=== PATIENT | male | born 1960 | race Caucasian/White ===

== ENCOUNTER 2022-09-11 08:03 | Inpatient (IN) ==
--- NOTE | 2022-09-11 08:55 | Emergency Department Note ---
Impression & Plan Stroke, Right hand weakness, Stroke-like symptom, Pulmonary nodule, Tobacco use disorder ED Provider Note CHIEF COMPLAINT: Right arm weakness, numbness HISTORY OF PRESENT ILLNESS: This 62-year-old male patient presents to the emergency department via private vehicle accompanied by family for evaluation of right arm weakness and numbness. The patient states symptoms started last night after playing cards. He does admit to striking the back of his elbow repeatedly on his chair while playing. He states he also would noticed some numbness sensations when he rested his elbow on the table while playing the game. He states similar symptoms occurred once before several months ago after working on his deck, and they resolved on their own a few days later. The patient did not take any medication for his symptoms. He is unable to actively move the wrist, make a fist, and has having difficulty bending at the elbow. The patient denies any headache, neck pain, chest pain, or shortness of breath. He has not had his symptoms worked up in the past, and does not follow regularly with a PCP or orthopedic doctor. He does admit to having cataract surgery about a month ago and states that he had a preoperative exam at that time, but prior to that, does not recall going to the doctor for many years. He has not had routine blood work completed. He is traveling, staying in a cabin at [facility] on vacation this week and plans to return home tomorrow. REVIEW OF SYSTEMS: A 10 system review of systems was performed with positives and pertinent negatives listed in the history of present illness. All other systems were reviewed and are negative. ALLERGIES: None PHYSICAL EXAM: VITALS: Vitals are noted on the nurse's note and reviewed by myself. Vital signs stable. GENERAL: This is a 62-year-old male, in no acute distress, nondiaphoretic, well- developed well-nourished. SKIN: The skin was without rashes, erythema, edema, or bruising. There is no tenting of the skin. Capillary refill less than 2 seconds. HEAD: Normocephalic atraumatic. EARS: External auditory canals clear, tympanic membranes pearly hugo without erythema or effusion bilaterally. No hemotympanum. Negative christensen sign EYES: Pupils equal round and reactive to light and accommodation. Conjunctivae without injection, sclerae without icterus. Extraocular movements intact. NOSE: Patent, turbinates without inflammation or discharge. No sinus tenderness. MOUTH: Mucous membranes moist. Tonsils are not enlarged. Pharynx without erythema or exudate. Uvula midline. Airway patent. Tongue does not deviate. NECK: Supple without nuchal rigidity. No lymphadenopathy. No thyromegaly. Cervical spine is nontender. No JVD. HEART: Regular rate and rhythm without murmurs gallops or rubs. LUNGS: Clear to auscultation bilaterally without wheezes, rales or rhonchi. No retractions or accessory muscle use. MUSCULOSKELETAL: No muscle atrophy, erythema, or edema noted. Weakness of the right upper extremity from the elbow to the fingers. Decreased esthetician/spa coordinator strength of the right upper extremity. Limited active range of motion in extension of the digits 2 through 5. Slight decreased active range of motion of the right thumb. Full range of motion without joint tenderness in all other extremities including the right shoulder. No tenderness to palpation. Normal gait. Strength 1/5 of the right upper extremity at the forearm as well as esthetician/spa coordinator strength. Strength 5/5 of all other extremities. NEURO: Patient was alert and oriented to person place and time. Normal sensation to light and sharp touch. Deep tendon reflexes 2+ throughout. No focal neurological deficits. An order was placed for continuous playground monitor. The monitor showed a normal sinus rhythm at a ventricular rate of 67 bpm, per my interpretation. EKG, per my interpretation: Sinus rhythm with occasional PVCs. Ventricular rate of [address] elevation or depression. No T wave inversion. No prior EKG available for comparison EMERGENCY DEPARTMENT COURSE: The patient was seen and evaluated as above. Given the history and physical exam, there was concern for possible stroke given the weakness in the right upper extremity. I did discuss case with Dr. Ashby. We did agree to start complete stroke evaluation for this patient. He is out of the window for TNK, as his last known normal was last night. The patient was agreeable. IV access obtained, labs drawn. Labs reviewed by myself as noted. No significant leukocytosis, anemia, thrombocytopenia. Renal, hepatic function and electrolytes without significant abnormality. CT, CT angiogram of the head and neck were completed as noted. There was concern for ill-defined area of decreased attenuation within the superior left frontoparietal lobe suspicious for acute or subacute infarct. CT angiogram concerning for high-grade stenosis of the distal left M1 branch of the middle cerebral artery with additional area of high-grade narrowing noted involving an anterior M2 branch. Given these findings, I did discuss the case with Dr. Melvin, stroke neurologist at [facility]. He agrees that it sounds that the patient likely had a stroke, but does not recommend any acute intervention given he is out of the window with the onset of symptoms last night. He recommends medical management as follows: Loading dose of aspirin 325 mg now. 81 mg aspirin daily afterward Loading dose of Plavix 300 mg now. 75 mg Plavix daily afterwards Rosuvastatin 20 mg daily, adjust based on lipid panel Allow for permissive hypertension to 180 systolic or 110 diastolic. Recommends administering IV fluids to help with the borderline low blood pressure. Dr. Melvin did recommend that the patient follow-up with their stroke clinic in [place] when he returns home. He will need follow-up in 1 month and 2 months. He should call to schedule this appointment and notify them that he was a stroke consult from [facility] to assist with scheduling. I discussed these recommendations with the patient and his family members at bedside. They were agreeable to admission. Patient was medicated with rosuvastatin, Plavix, aspirin for loading doses I discussed the case with the healthcare economics manager. I [facility] did agree to see and evaluate the patient for admission. Please see hospitalist dictation regarding ongoing management care of this patient Differential diagnosis includes nerve palsy, stroke, TIA, infection, dehydration, metabolic abnormality, hypo/hyperglycemia, electrolyte disturbance, anemia, hypoxia, cardiac sources, intracerebral event, toxicologic, neurologic, as well as other pathologies. I attest that I have personally reviewed the patient's current medication list. Patient was found to have normal blood pressure on screening and does not require follow-up. The chart was completed utilizing [employer] Speech voice recognition software. Gra mmatical errors, random word insertions, pronoun errors, and incomplete sentences are an occasional consequence of this system due to software limitations, ambient noise, and hardware issues. Any formal questions or concerns about the content, text, or information contained within the body of this dictation should be directly addressed to the provider for clarification. Past Med/Surg History Medical History No pertinent past medical history Tobacco use disorder Surgical History Cataract H/O: knee surgery Family History Other Diabetes Social History Smoking Status: Current every day smoker Cigarettes Per Day: 30; Second Hand Exposure: Yes; Do You Dip or Chew Tobacco: No; Tobacco Cessation Education Requested by Patient: Yes Hx Alcohol Use: No Hx Substance Use: No Preferred Language: Uzbek Communication Ability: Impaired Motorcycle Service Technician Required: No Beliefs That Will Affect Care: None Current Living Situation: Spouse Other Information That Helps Us Care for You: No Feels Safe at Home: Yes Safety Concerns: Feels Safe At This Time Assistive Devices: None Allergies Allergies Allergy/AdvReac Type Severity Reaction Status Date / Time No Known Allergies Allergy Unverified 09/11/22 10:47 Home Meds Home Medications Medication Instructions Recorded Confirmed No Known Home Medications 09/11/22 09/11/22 Results & Data (ED) Vital Signs Vital Signs - 24 hr 09/11/22 08:09 09/11/22 09:01 09/11/22 08:46 Temperature 36.5 C 36.7 C Temperature Source Temporal Artery Scan Oral Pulse Rate 75 66 Pulse Rate [Apical] 67 Pulse Rhythm [Apical] Regular Pulse Strength [Apical] Normal Respiratory Rate 18 18 Respiratory Effort / Characteristics Non-Labored Spontaneous Non-Labored Respiratory Depth Normal Normal Respiratory Pattern Regular Regular Blood Pressure 128/75 Blood Pressure [Left Arm] 118/69 Blood Pressure Mean 92 Blood Pressure Mean [Left Arm] 85 Pulse Oximetry 95 95 Oxygen Delivery Method Room Air Room Air Sepsis Recent Fever Within 48 Hours No Sepsis New/Unexplained Change in Mental Status No Sepsis Action Taken by Nursing No Action Required 09/11/22 09:01 09/11/22 09:16 09/11/22 09:31 Temperature 36.8 C 36.7 C Temperature Source Oral Oral Pulse Rate Pulse Rate [Apical] 67 68 67 Pulse Rhythm [Apical] Regular Regular Pulse Strength [Apical] Normal Normal Respiratory Rate 15 15 15 Respiratory Effort / Characteristics Non-Labored Non-Labored Non-Labored Respiratory Depth Normal Normal Normal Respiratory Pattern Regular Regular Regular Blood Pressure Blood Pressure [Left Arm] 111/74 119/69 123/81 Blood Pressure Mean Blood Pressure Mean [Left Arm] 86 85 95 Pulse Oximetry 96 96 98 Oxygen Delivery Method Room Air Room Air Room Air Sepsis Recent Fever Within 48 Hours Sepsis New/Unexplained Change in Mental Status Sepsis Action Taken by Nursing 09/11/22 10:00 09/11/22 11:46 Temperature Temperature Source Pulse Rate Pulse Rate [Apical] 67 67 Pulse Rhythm [Apical] Regular Pulse Strength [Apical] Normal Respiratory Rate 15 18 Respiratory Effort / Characteristics Non-Labored Spontaneous Respiratory Depth Normal Respiratory Pattern Regular Blood Pressure Blood Pressure [Left Arm] 123/81 122/68 Blood Pressure Mean Blood Pressure Mean [Left Arm] 95 86 Pulse Oximetry 100 100 Oxygen Delivery Method Room Air Sepsis Recent Fever Within 48 Hours Sepsis New/Unexplained Change in Mental Status Sepsis Action Taken by Nursing Laboratory Data 09/11/22 08:58 09/11/22 08:58 Lab Results 09/11/22 09/11/22 09/11/22 Range/Units 08:55 08:58 08:58 WBC 9.00 (4.8-10.8) K/ul RBC 5.23 (4.70-6.10) M/uL Hgb 15.7 (14.0-18.0) g/dl Hct 45.8 (42.0-52.0) % MCV 87.6 (80.0-100.0) fL MCH 30.0 (25.0-34.0) pg MCHC 34.3 (32.0-36.0) g/dL RDW Std Deviation 46.5 H (36.4-46.3) fL RDW Coeff of Bakari 14.6 H (11.5-14.5) % Plt Count 259 (130-400) K/uL MPV 10.1 (9.4-12.4) fL Immature Gran % (Auto) 0.6 % Neut % (Auto) 68.1 % Lymph % (Auto) 21.2 % [place] % (Auto) 8.4 % Eos % (Auto) 0.8 % Baso % (Auto) 0.9 % Neut # (Auto) 6.13 (1.40-6.50) K/uL Lymph # (Auto) 1.91 (1.2-3.4) K/uL [place] # (Auto) 0.76 H (0.11-0.59) K/uL Eos # (Auto) 0.07 (0-0.50) K/uL Baso # (Auto) 0.08 (0-0.2) K/uL Immature Gran # (Auto) 0.05 (0.01-0.20) K/uL PT (9.0-12.0) Seconds INR (0.9-1.1) APTT (21.0-31.0) Seconds PTT Ratio Sodium (136-145) mmol/L Potassium (3.5-5.1) mmol/L Chloride (98-107) mmol/L Carbon Dioxide (21-32) mmol/L Anion Gap (3-11) BUN (6-23) mg/dl Creatinine (0.6-1.4) mg/dl Est Cr Clr Drug Dosing ml/min Est GFR ( Amer) ml/min Est GFR (Non-Af Amer) ml/min BUN/Creatinine Ratio (10-20) Glucose (70-99(Fasting)) mg/dl POC Glucose 144 H (70-99) mg/dl Calcium (8.6-10.3) mg/dl Magnesium (1.7-2.4) mg/dl Total Bilirubin (0.2-1.0) mg/dl AST (13-39) U/L ALT (7-52) U/L Alkaline Phosphatase (34-104) U/L Troponin I High Sens (0-20) pg/ml C-Reactive Protein (0-0.5) mg/dl Total Protein (6.0-8.3) gm/dl Albumin (3.4-5.0) gm/dl Globulin (2.5-4.0) gm/dl Albumin/Globulin Ratio (0.9-2) Procalcitonin (0-0.5) ng/ml Urine Color Urine Appearance (Clear) Urine pH (4.5-7.5) Ur Specific [place] (1.000-1.030) Urine Protein (Negative) Urine Glucose (UA) (Negative) Urine Ketones (Negative) Urine Blood (Negative) Urine Nitrite (Negative) Urine Bilirubin (Negative) Urine Urobilinogen (Negative) Ur Leukocyte Esterase (Negative) Anaplasma Smear Babesia Smear Lyme Disease IgG Ab (Negative) Lyme Disease IgM Ab (Negative) SARS-CoV-2, RNA, NAAT (NEGATIVE) Blood Type O Positive Antibody Screen NEGATIVE 09/11/22 09/11/22 09/11/22 Range/Units 08:58 08:58 08:58 WBC (4.8-10.8) K/ul RBC (4.70-6.10) M/uL Hgb (14.0-18.0) g/dl Hct (42.0-52.0) % MCV (80.0-100.0) fL MCH (25.0-34.0) pg MCHC (32.0-36.0) g/dL RDW Std Deviation (36.4-46.3) fL RDW Coeff of Bakari (11.5-14.5) % Plt Count (130-400) K/uL MPV (9.4-12.4) fL Immature Gran % (Auto) % Neut % (Auto) % Lymph % (Auto) % [place] % (Auto) % Eos % (Auto) % Baso % (Auto) % Neut # (Auto) (1.40-6.50) K/uL Lymph # (Auto) (1.2-3.4) K/uL [place] # (Auto) (0.11-0.59) K/uL Eos # (Auto) (0-0.50) K/uL Baso # (Auto) (0-0.2) K/uL Immature Gran # (Auto) (0.01-0.20) K/uL PT 10.3 (9.0-12.0) Seconds INR 0.9 (0.9-1.1) APTT 24.9 (21.0-31.0) Seconds PTT Ratio 0.9 Sodium 135 L (136-145) mmol/L Potassium 4.3 (3.5-5.1) mmol/L Chloride 106 (98-107) mmol/L Carbon Dioxide 25 (21-32) mmol/L Anion Gap 4 (3-11) BUN 19 (6-23) mg/dl Creatinine 1.20 (0.6-1.4) mg/dl Est Cr Clr Drug Dosing 73.7 ml/min Est GFR ( Amer) 74.7 ml/min Est GFR (Non-Af Amer) 64.4 ml/min BUN/Creatinine Ratio 15.8 (10-20) Glucose 113 H (70-99(Fasting)) mg/dl POC Glucose (70-99) mg/dl Calcium 9.4 (8.6-10.3) mg/dl Magnesium 1.9 (1.7-2.4) mg/dl Total Bilirubin 0.6 (0.2-1.0) mg/dl AST 15 (13-39) U/L ALT 11 (7-52) U/L Alkaline Phosphatase 95 (34-104) U/L Troponin I High Sens 2.5 (0-20) pg/ml C-Reactive Protein 0.93 H (0-0.5) mg/dl Total Protein 7.6 (6.0-8.3) gm/dl Albumin 4.2 (3.4-5.0) gm/dl Globulin 3.4 (2.5-4.0) gm/dl Albumin/Globulin Ratio 1.2 (0.9-2) Procalcitonin (0-0.5) ng/ml Urine Color Urine Appearance (Clear) Urine pH (4.5-7.5) Ur Specific [place] (1.000-1.030) Urine Protein (Negative) Urine Glucose (UA) (Negative) Urine Ketones (Negative) Urine Blood (Negative) Urine Nitrite (Negative) Urine Bilirubin (Negative) Urine Urobilinogen (Negative) Ur Leukocyte Esterase (Negative) Anaplasma Smear See Comment Babesia Smear See Comment Lyme Disease IgG Ab (Negative) Lyme Disease IgM Ab (Negative) SARS-CoV-2, RNA, NAAT (NEGATIVE) Blood Type Antibody Screen 09/11/22 09/11/22 09/11/22 Range/Units 08:58 11:54 11:54 WBC (4.8-10.8) K/ul RBC (4.70-6.10) M/uL Hgb (14.0-18.0) g/dl Hct (42.0-52.0) % MCV (80.0-100.0) fL MCH (25.0-34.0) pg MCHC (32.0-36.0) g/dL RDW Std Deviation (36.4-46.3) fL RDW Coeff of Bakari (11.5-14.5) % Plt Count (130-400) K/uL MPV (9.4-12.4) fL Immature Gran % (Auto) % Neut % (Auto) % Lymph % (Auto) % [place] % (Auto) % Eos % (Auto) % Baso % (Auto) % Neut # (Auto) (1.40-6.50) K/uL Lymph # (Auto) (1.2-3.4) K/uL [place] # (Auto) (0.11-0.59) K/uL Eos # (Auto) (0-0.50) K/uL Baso # (Auto) (0-0.2) K/uL Immature Gran # (Auto) (0.01-0.20) K/uL PT (9.0-12.0) Seconds INR (0.9-1.1) APTT (21.0-31.0) Seconds PTT Ratio Sodium (136-145) mmol/L Potassium (3.5-5.1) mmol/L Chloride (98-107) mmol/L Carbon Dioxide (21-32) mmol/L Anion Gap (3-11) BUN (6-23) mg/dl Creatinine (0.6-1.4) mg/dl Est Cr Clr Drug Dosing ml/min Est GFR ( Amer) ml/min Est GFR (Non-Af Amer) ml/min BUN/Creatinine Ratio (10-20) Glucose (70-99(Fasting)) mg/dl POC Glucose (70-99) mg/dl Calcium (8.6-10.3) mg/dl Magnesium (1.7-2.4) mg/dl Total Bilirubin (0.2-1.0) mg/dl AST (13-39) U/L ALT (7-52) U/L Alkaline Phosphatase (34-104) U/L Troponin I High Sens (0-20) pg/ml C-Reactive Protein (0-0.5) mg/dl Total Protein (6.0-8.3) gm/dl Albumin (3.4-5.0) gm/dl Globulin (2.5-4.0) gm/dl Albumin/Globulin Ratio (0.9-2) Procalcitonin < 0.05 (0-0.5) ng/ml Urine Color Yellow Urine Appearance Clear (Clear) Urine pH 5.5 (4.5-7.5) Ur Specific [place] 1.024 (1.000-1.030) Urine Protein Negative (Negative) Urine Glucose (UA) Negative (Negative) Urine Ketones Negative (Negative) Urine Blood Negative (Negative) Urine Nitrite Negative (Negative) Urine Bilirubin Negative (Negative) Urine Urobilinogen Negative (Negative) Ur Leukocyte Esterase Negative (Negative) Anaplasma Smear Babesia Smear Lyme Disease IgG Ab Negative (Negative) Lyme Disease IgM Ab Negative (Negative) SARS-CoV-2, RNA, NAAT NEGATIVE (NEGATIVE) Blood Type Antibody Screen Administered Medications Discontinued Medications Aspirin (Aspirin Chew 324 Mg) 324 mg PO NOW STA Stop: 09/11/22 12:04 Last Admin: 09/11/22 12:33 Dose: 324 mg Documented By: VENECIAK Clopidogrel Bisulfate (Clopidogrel Bisulfate 300 Mg Tab) 300 mg PO NOW STA Stop: 09/11/22 12:04 Last Admin: 09/11/22 12:33 Dose: 300 mg Documented By: NATALY Gadobutrol (Gadobutrol 65ml Vial) 9 ml IV ONCE ONE Stop: 09/11/22 17:07 Last Admin: 09/11/22 17:07 Dose: 9 ml Documented By: AF(2) Sodium Chloride (Nss 1000ml) 1,000 mls @ 999 mls/hr IV .Q1H1M ONE Stop: 09/11/22 13:03 Last Infusion: 09/11/22 14:11 Dose: 999 mls/hr Documented By: Admin: 09/11/22 12:55 Dose: 999 mls/hr Documented By: MEREDITH Ioversol (Optiray 320 125ml) 118 ml IV ONCE ONE Stop: 09/11/22 10:34 Last Admin: 09/11/22 10:33 Dose: 118 ml Documented By: SHANTELLE Rosuvastatin Calcium (Rosuvastatin Calcium 20 Mg Tab) 20 mg PO NOW STA Stop: 09/11/22 12:04 Last Admin: 09/11/22 12:33 Dose: 20 mg Documented By: NATALY Imaging Data Radiologist's Impression: Chest X-Ray 09/11/22 08:46 XR chest 1V portable HISTORY: neuro deficit, right arm weakness COMPARISON: None. FINDINGS: No pneumothorax. No pleural effusions. The cardiac silhouette is normal in size. No focal lung consolidations to suggest a pneumonia. No evidence for pulmonary edema. Questionable 2.3 cm left retrocardiac nodule. IMPRESSION: 1. No acute process within the chest. 2. Questionable 2.3 cm left retrocardiac nodule. Follow-up PA and lateral views of the chest are recommended to exclude the possibility of a pulmonary lesion. ACT 112: Positive. There are findings on this exam that require communication between the performing entity and the patient following Patient Test Result Information Act ([place] Act 112) guidelines. Electronically signed by: Aly Garcia M.D. 09/11/2022 11:[address] 09/11/22 08:46 CT head/brain wo con CLINICAL HISTORY: 62 years-old Male with neuro deficit, right arm weakness. Acute stroke like symptoms TECHNIQUE: Multiple axial CT images of the head were obtained without contrast. A dose lowering technique was utilized adhering to the principles of ALARA. CT DOSE: 1069.41 mGy.cm COMPARISON: CTA head and neck of same day FINDINGS: No acute intracranial hemorrhage, midline shift, intracranial mass, hydrocephalus, or abnormal extra-axial collection. Involutional changes with chronic microvascular ischemic disease. There is an ill-defined area of decreased attenuation with equivocal blurring of the hugo-white interface within the left frontal parietal lobe on image 23 series 2. The calvarium is intact. The paranasal sinuses, mastoid air cells, and middle ear cavities are clear. IMPRESSION: 1. No acute intracranial hemorrhage or midline shift. 2. Ill-defined area of decreased attenuation within the superior left frontoparietal lobe is suspicious for an acute or subacute infarct. ACT 112: Negative or not required by law. The above report was generated using voice recognition software. It may contain grammatical, syntax or spelling errors. Electronically signed by: Austin Santana M.D. 09/11/2022 10:56 AM Head CTA 09/11/22 08:46 CT angio head w con CLINICAL HISTORY: 62 years-old Male with neuro deficit, right arm weakness. Acute stroke like symptoms COMPARISON STUDY: Head CT of same day TECHNIQUE: Following the IV administration of 118 cc of Optiray, CT angiogram of the brain was performed from the skull base to the vertex. Images are reviewed in the axial, sagittal, and coronal planes. 3-D MIPS images are created and assessed. IV contrast was administered without complication. All measurements were obtained according to NASCET criteria. A dose lowering technique was utilized adhering to the principles of ALARA. FINDINGS: CT ANGIOGRAM OF THE BRAIN: The imaged bilateral internal carotid arteries are patent. The anterior cerebral arteries and right middle cerebral artery are patent. There is high-grade stenosis of the distal M1 segment of the left middle cerebral artery on image 111 series 5 with additional high-grade narrowing noted involving the anterior M2 branch on image 115 series 5. The vertebrobasilar system and posterior cerebral arteries are widely patent. origin of the right posterior cerebral artery. There is no aneurysm, high-grade stenosis, or proximal branch occlusion identified. Dural sinuses appear patent. Area of decreased attenuation within the left frontoparietal lobe is better seen on the CT head of same day. IMPRESSION: 1. 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 2. Otherwise unremarkable CTA. ACT 112: Negative or not required by law. The above report was generated using voice recognition software. It may contain grammatical, syntax or spelling errors. Electronically signed by: Austin Santana M.D. 09/11/2022 10:56 AM Neck CTA 09/11/22 08:46 CT angio neck with con CLINICAL HISTORY: neuro deficit, right arm weakness TECHNIQUE: CT angiography of the neck was performed following intravenous a dministration of iodinated contrast. Coronal and sagittal MIPS were obtained from the axial data set and were submitted for review. Automated dose lowering techniques and/or adjustment according to patient size were utilized for this examination. All measurements were calculated based on NASCET criteria. Comparison: None available at the time of this dictation. FINDINGS: Emphysema is seen. CTA Neck: The left common carotid artery shares common origin with the innominate artery. There is no significant atherosclerotic plaque in the aortic arch or the origins of the innominate, left common carotid, and left subclavian arteries. The common carotid, external carotid, cervical segments of the internal carotid arteries, and the cervical segments of the vertebral arteries are patent without hemodynamically significant stenosis. The left vertebral artery is dominant. Degenerative changes are seen in the spine. IMPRESSION: No occlusion, hemodynamically significant stenosis, or dissection in the major cervical arteries. Assessment of stenosis of the internal carotid arteries is based on NASCET criteria. ACT 112: Negative or not required by law. Electronically signed by: Tino Lee M.D. 09/11/2022 11:04 AM Chest X-Ray 09/11/22 11:45 XR chest 2V PA/lateral HISTORY: left retrocardiac nodule on 1-view chest? COMPARISON: Chest 09/11/2022. FINDINGS: The left retrocardiac nodular density seen on the prior chest x-ray may be present on the lateral view. Therefore, follow-up nonemergent chest CT is recommended to exclude the possibility of a pulmonary nodule. No pneumothorax. No pleural effusions. No focal lung consolidations to suggest a pneumonia. No evidence for pulmonary edema. There are low lung volumes. The cardiac silhouette is top normal in size. No acute fractures identified. IMPRESSION: The left retrocardiac nodular density seen on the prior chest x-ray may be present on the lateral view. Therefore, follow-up nonemergent chest CT is recommended to exclude the possibility of a pulmonary nodule. ACT 112: Positive. There are findings on this exam that require communication between the performing entity and the patient following Patient Test Result Information Act ([place] Act 112) guidelines. Electronically signed by: Aly Garcia M.D. 09/11/2022 3:28 PM Discharge Plan Visit Data Chief Complaint: Arm Pain Stated Complaint: R ARM NUMBNESS ED Provider: Jeovany Ashby ED Midlevel Provider: Rachel Baires Discharge Problem: Stroke, Right hand weakness, Stroke-like symptom, Pulmonary nodule, Tobacco use disorder Patient Disposition: Admitted As Inpatient Discharge Instructions Interventions: ED Discharge Assessment Last Done: 09/11/22 14:13
[2022-09-11 09:47] LABS: Basophils # (auto) 0.08 K/uL (0-0.2); Basophils % (auto) 0.9 %; Eosinophils # (auto) 0.07 K/uL (0-0.50); Eosinophils % (auto) 0.8 %; Hematocrit (blood only) 45.8 % (42.0-52.0); Hemoglobin 15.7 g/dl (14.0-18.0); Immature Granulocytes # (auto) 0.05 K/uL (0.01-0.20); Immature Granulocytes % (auto) 0.6 %; Lymphocytes # (auto) 1.91 K/uL (1.2-3.4); Lymphocytes % (auto) 21.2 %; Mean Corpuscular Hgb Conc 34.3 g/dL (32.0-36.0); Mean Corpuscular Volume 87.6 fL (80.0-100.0); Mean Platelet Volume 10.1 fL (9.4-12.4); Monocytes # (auto) 0.76 K/uL (0.11-0.59); Monocytes % (auto) 8.4 %; Neutrophils # (auto) 6.13 K/uL (1.40-6.50); Neutrophils % (auto) 68.1 %; Platelet Count 259 K/uL (130-400); RDW Coefficient of Variation 14.6 % (11.5-14.5); RDW Standard Deviation 46.5 fL (36.4-46.3); Red Blood Count 5.23 M/uL (4.70-6.10)
[2022-09-11 10:06] LABS: Albumin Globulin Ratio 1.2 (0.9-2); Albumin Level 4.2 gm/dl (3.4-5.0); BUN Creatinine Ratio 15.8 (10-20); Bilirubin,Total 0.6 mg/dl (0.2-1.0); C Reactive Protein 0.93 mg/dl (0-0.5); Calcium 9.4 mg/dl (8.6-10.3); Creatinine Clr Calc Pharmacy 73.7 ml/min; Est GFR (African American) 74.7 ml/min; Est GFR (Non-African American) 64.4 ml/min; Globulin 3.4 gm/dl (2.5-4.0); Magnesium 1.9 mg/dl (1.7-2.4); Potassium 4.3 mmol/L (3.5-5.1); Total Protein 7.6 gm/dl (6.0-8.3)
[2022-09-11 10:11] LABS: Troponin I High Sensitivity 2.5 pg/ml (0-20)
[2022-09-11 10:23] LABS: INR 0.9 (0.9-1.1); Partial Thromboplastin Ratio 0.9; Partial Thromboplastin Time 24.9 Seconds (21.0-31.0); Prothrombin Time 10.3 Seconds (9.0-12.0)
[2022-09-11 10:27] LABS: Procalcitonin < 0.05 ng/ml (0-0.5)
[2022-09-11 10:32] LABS: Lyme Ab IgG w/WB Rflx Negative (Negative); Lyme Ab IgM w/WB Rflx Negative (Negative)
[2022-09-11] MEDS ORDERED: OPTIRAY 320 125ml IV ONE (10:33)
--- NOTE | 2022-09-11 10:57 | CT Scan Report ---
CT head/brain wo con CLINICAL HISTORY: 62 years-old Male with neuro deficit, right arm weakness. Acute stroke like sympto ms TECHNIQUE: Multiple axial CT images of the head were obtained without contrast. A dose lowering tech nique was utilized adhering to the principles of ALARA. CT DOSE: 1069.41 mGy.cm COMPARISON: CTA head and neck of same day FINDINGS: No acute intracranial hemorrhage, midline shift, intracranial mass, hydrocephalus, or abnormal extra- axial collection. Involutional changes with chronic microvascular ischemic disease. There is an ill-d efined area of decreased attenuation with equivocal blurring of the hugo-white interface within the l eft frontal parietal lobe on image 23 series 2. The calvarium is intact. The paranasal sinuses, mastoid air cells, and middle ear cavities are clear . IMPRESSION: 1. No acute intracranial hemorrhage or midline shift. 2. Ill-defined area of decreased attenuation within the superior left frontoparietal lobe is suspicio us for an acute or subacute infarct. ACT 112: Negative or not required by law. The above report was generated using voice recognition software. It may contain grammatical, syntax o r spelling errors. Electronically signed by: Austin Santana M.D. 09/11/2022 10:56 AM
--- NOTE | 2022-09-11 10:57 | CT Scan Report ---
CT angio head w con CLINICAL HISTORY: 62 years-old Male with neuro deficit, right arm weakness. Acute stroke like symp toms COMPARISON STUDY: Head CT of same day TECHNIQUE: Following the IV administration of 118 cc of Optiray, CT angiogram of the brain was perfor med from the skull base to the vertex. Images are reviewed in the axial, sagittal, and coronal planes . 3-D MIPS images are created and assessed. IV contrast was administered without complication. All me asurements were obtained according to NASCET criteria. A dose lowering technique was utilized adherin g to the principles of ALARA. FINDINGS: CT ANGIOGRAM OF THE BRAIN: The imaged bilateral internal carotid arteries are patent. The anterior cerebral arteries and right m iddle cerebral artery are patent. There is high-grade stenosis of the distal M1 segment of the left m iddle cerebral artery on image 111 series 5 with additional high-grade narrowing noted involving the anterior M2 branch on image 115 series 5. The vertebrobasilar system and posterior cerebral arteries are widely patent. origin of the right posterior cerebral artery. There is no aneurysm, high-gr sourav stenosis, or proximal branch occlusion identified. Dural sinuses appear patent. Area of decreased attenuation within the left frontoparietal lobe is better seen on the CT head of sa me day. IMPRESSION: 1. High-grade stenosis of the distal left M1 branch of the middle cerebral artery with additional are a of high-grade narrowing noted involving an anterior M2 branch. 2. Otherwise unremarkable CTA. ACT 112: Negative or not required by law. The above report was generated using voice recognition software. It may contain grammatical, syntax o r spelling errors. Electronically signed by: Austin Santana M.D. 09/11/2022 10:56 AM
--- NOTE | 2022-09-11 11:04 | XRay Report ---
XR chest 1V portable HISTORY: neuro deficit, right arm weakness COMPARISON: None. FINDINGS: No pneumothorax. No pleural effusions. The cardiac silhouette is normal in size. No focal l nora consolidations to suggest a pneumonia. No evidence for pulmonary edema. Questionable 2.3 cm left retrocardiac nodule. IMPRESSION: 1. No acute process within the chest. 2. Questionable 2.3 cm left retrocardiac nodule. Follow-up [place] and lateral views of the chest are nusrat mmended to exclude the possibility of a pulmonary lesion. ACT 112: Positive. There are findings on this exam that require communication between the performing entity and the patient following Patient Test Result Information Act ([place] Act 112) guidelines. Electronically signed by: Aly Garcia M.D. 09/11/2022 11:03 AM
--- NOTE | 2022-09-11 11:06 | CT Scan Report ---
CT angio neck with con CLINICAL HISTORY: neuro deficit, right arm weakness TECHNIQUE: CT angiography of the neck was performed following intravenous administration of iodinate d contrast. Coronal and sagittal MIPS were obtained from the axial data set and were submitted for re view. Automated dose lowering techniques and/or adjustment according to patient size were utilized f or this examination. All measurements were calculated based on NASCET criteria. Comparison: None available at the time of this dictation. FINDINGS: Emphysema is seen. CTA Neck: The left common carotid artery shares common origin with the innominate artery. There is n o significant atherosclerotic plaque in the aortic arch or the origins of the innominate, left common carotid, and left subclavian arteries. The common carotid, external carotid, cervical segments of t he internal carotid arteries, and the cervical segments of the vertebral arteries are patent without hemodynamically significant stenosis. The left vertebral artery is dominant. Degenerative changes are seen in the spine. IMPRESSION: No occlusion, hemodynamically significant stenosis, or dissection in the major cervical arteries. Assessment of stenosis of the internal carotid arteries is based on NASCET criteria. ACT 112: Negative or not required by law. Electronically signed by: Tino Lee M.D. 09/11/2022 11:04 AM
[2022-09-11] MEDS ORDERED: SODIUM CHLORIDE 0.9% 1000ML 1,000 ML IV ONE (12:03)
[2022-09-11] MEDS ORDERED: ASPIRIN CHEW 324 MG PO STA (12:03)
[2022-09-11] MEDS ORDERED: CLOPIDOGREL BISULFATE 300 MG TAB PO STA (12:03)
[2022-09-11] MEDS ORDERED: ROSUVASTATIN CALCIUM 20 MG TAB PO STA (12:03)
[2022-09-11 12:11] LABS: Appearance Urine Clear (Clear); Bilirubin Urine Negative (Negative); Blood Urine Negative (Negative); Color Urine Yellow; Glucose Urine UA Negative (Negative); Ketones Urine Negative (Negative); Leukocyte Esterase Urine Negative (Negative); Nitrite Urine Negative (Negative); Protein Urine Negative (Negative); Specific Gravity Urine 1.024 (1.000-1.030); Urobilinogen Urine Negative (Negative); pH Urine 5.5 (4.5-7.5)
--- NOTE | 2022-09-11 12:45 | History & Physical Report ---
Date of Service September 11, 2022 Assessment & Plan (1) Stroke: (2) Right hand weakness: Plan: This is a 62-year-old male with tobacco use disorder with 50+ pack years who presents with numbness and tingling of right hand since last evening with concern for acute-subacute infarct of L MCA. Developed paresthesias in RUE last evening while playing cards, woke up this morning with numbness and weakness in R hand CT head with no acute intracranial hemorrhage or midline shift. Ill-defined area of decreased attenuation within the superior left frontoparietal lobe is suspicious for an acute or subacute infarct Head/neck CTA with high-grade stenosis of the distal left M1 branch of the middle cerebral artery with additional area of high-grade narrowing noted involving an anterior M2 branch ED provider discussed with Janny telestroke who confirmed we are out of range for intervention at this time. Loaded with 300mg plavix and given 325mg aspirin and 20mg Crestor MRI brain w/wo, echo with bubble study, PT/OT/speech evals Continue dual antiplatelet, statin Allow for permission HTN to allow for cerebral perfusion for acut period, only intervening for BP > 180/110 A1c and fasting labs in AM Routine neuro consult (3) Pulmonary nodule: Plan: CXR with questionable 2.3 cm left retrocardiac nodule. Follow-up [place] and lateral views of the chest are recommended to exclude the possibility of a pulmonary lesion. Follow up imaging pending, will likely need outpatient follow up given extensive tobacco history (4) Tobacco use disorder: Plan: 50+ pack years. Discussed importance of cessation DVT Ppx: SQ heparin Code status: FULL PCP: no PCP (resides in [place], [place]) Dispo: Admitted to PCU Patient seen in collaboration with Dr. Oliveira. Please see addendum. I spent a total of 75 minutes coordinating, documenting, and providing care for this patient excluding time spent in the performance of separately billed services. History of Present Illness Chief Complaint: Right hand numbness Primary Care Provider: NO PCP This is a 62-year-old male with tobacco use disorder with 50+ pack years who presents with numbness and tingling of right hand since last evening. Patient resides in [place] outside of [place] and has been vacationing at [facility] with his family over the past few days was playing cards last night when he noticed some numbness in right hand. Thought he had just putting weight on his elbow causing [id number] and went to bed. When he woke up this morning, patient had numbness of right hand and inability to use it and came in for further evaluation. States he had some numbness in right hand a few weeks ago that only lasted for short period of time before resolving on its own. Denies any difficulty speaking or swallowing. No numbness or tingling in other extremities. No difficulty with ambulation. Denies any known past history of stroke, DM II, HTN, CAD. Has been smoking more the past few days while on vacation (1.5-2ppd). Does not have a primary care doctor and only medical attention he has received recently was a preoperative evaluation before cataract surgery. No F/C, lightheadedness, CP, SOB, N/V, abdominal pain, dysuria, diarrhea or constipation. Allergies Allergy/AdvReac Type Severity Reaction Status Date / Time No Known Allergies Allergy Unverified 09/11/22 10:47 Home Medications Medication Instructions Recorded Confirmed Type No Known Home Medications 09/11/22 09/11/22 History Past Med/Surg History Medical History No pertinent past medical history Tobacco use disorder Surgical History Cataract H/O: knee surgery Family History Other Diabetes Social History (Updated 09/11/22 @ 14:53 by Trinh Flower PA-C) Smoking Status: Current every day smoker Hx Alcohol Use: No (quit 10+ years ago) Hx Substance Use: No Preferred Language: Omani Feels Safe at Home: Yes Review of Systems Review of Systems: At least ten systems reviewed and negative except as noted in the HPI. Physical Exam Physical Exam: General Appearance: WD/WN, vitals as above, NAD, sitting up in bed, pleasant, conversing easily Head: normocephalic, atraumatic Eyes: normal inspection, PERRL, conjunctivae normal, anicteric sclerae ENT: external ear and nose normal, oropharynx dry mucous membranes Neck: normal visual inspection, trachea midline, no thyromegaly Respiratory: normal respiratory effort, lungs clear to auscultation, no wheeze, rales, rhonchi. No accessory muscle use Cardiovascular: regular rate, rhythm, no murmur, normal peripheral pulses, no BLE edema. Vessels: no JVD Chest: normal inspection of chest Abdomen/GI: normal bowel sounds, soft, nontender, no hepatosplenomegaly Extremities/Musculoskeletal: no cyanosis or clubbing, extremities motor strength 5/5 Neurologic: PERRL, EOMI, accommodation nl, no face palsy, no dysarthria, CN's II-XI intact bilaterally. R hand and forearm 3/5, decreased sensation and passive ROM only. R shoulder 4/5. RLE, LUE and LLE 5/5, active ROM Psychiatric: A+Ox3, euthymic affect Skin: no rashes, normal color, warm/dry Results & Data Results & Data Vital Signs (Past 12 Hours) Vital Signs Temp Pulse Pulse Resp BP BP Pulse Ox 09/11/22 11:46 67 18 122/68 100 09/11/22 10:00 67 15 123/81 100 09/11/22 09:31 67 15 123/81 98 09/11/22 09:16 36.7 C 68 15 119/69 96 09/11/22 09:01 36.8 C 67 15 111/74 96 09/11/22 08:46 36.7 C 67 18 118/69 95 09/11/22 09:01 66 09/11/22 08:09 36.5 C 75 18 128/75 95 O2 Del Method 09/11/22 11:46 09/11/22 10:00 Room Air 09/11/22 09:31 Room Air 09/11/22 09:16 Room Air 09/11/22 09:01 Room Air 09/11/22 08:46 Room Air 09/11/22 09:01 09/11/22 08:09 Room Air Laboratory Results Short CBC 09/11/22 Range/Units 08:58 WBC 9.00 (4.8-10.8) K/ul Hgb 15.7 (14.0-18.0) g/dl Hct 45.8 (42.0-52.0) % Plt Count 259 (130-400) K/uL BMP 09/11/22 08:58 Sodium 135 L Potassium 4.3 Chloride 106 Carbon Dioxide 25 BUN 19 Creatinine 1.20 Glucose 113 H Calcium 9.4 Liver Function 09/11/22 Range/Units 08:58 Total Bilirubin 0.6 (0.2-1.0) mg/dl AST 15 (13-39) U/L ALT 11 (7-52) U/L Alkaline Phosphatase 95 (34-104) U/L Albumin 4.2 (3.4-5.0) gm/dl Urine 09/11/22 Range/Units 11:54 Urine Color Yellow Urine Appearance Clear (Clear) Urine pH 5.5 (4.5-7.5) Ur Specific [place] 1.024 (1.000-1.030) Urine Protein Negative (Negative) Urine Glucose (UA) Negative (Negative) Diagnostic Findings Chest X-Ray 09/11/22 08:46 XR chest 1V portable HISTORY: neuro deficit, right arm weakness COMPARISON: None. FINDINGS: No pneumothorax. No pleural effusions. The cardiac silhouette is normal in size. No focal lung consolidations to suggest a pneumonia. No evidence for pulmonary edema. Questionable 2.3 cm left retrocardiac nodule. IMPRESSION: 1. No acute process within the chest. 2. Questionable 2.3 cm left retrocardiac nodule. Follow-up [place] and lateral views of the chest are recommended to exclude the possibility of a pulmonary lesion. ACT 112: Positive. There are findings on this exam that require communication between the performing entity and the patient following Patient Test Result [place] Act ([place] Act 112) guidelines. Electronically signed by: Aly Garcia M.D. 09/11/2022 11:[address] 09/11/22 08:46 CT head/brain wo con CLINICAL HISTORY: 62 years-old Male with neuro deficit, right arm weakness. Acute stroke like symptoms TECHNIQUE: Multiple axial CT images of the head were obtained without contrast. A dose lowering technique was utilized adhering to the principles of ALARA. CT DOSE: 1069.41 mGy.cm COMPARISON: CTA head and neck of same day FINDINGS: No acute intracranial hemorrhage, midline shift, intracranial mass, hydrocephalus, or abnormal extra-axial collection. Involutional changes with chronic microvascular ischemic disease. There is an ill-defined area of decreased attenuation with equivocal blurring of the hugo-white interface within the left frontal parietal lobe on image 23 series 2. The calvarium is intact. The paranasal sinuses, mastoid air cells, and middle ear cavities are clear. IMPRESSION: 1. No acute intracranial hemorrhage or midline shift. 2. Ill-defined area of decreased attenuation within the superior left frontoparietal lobe is suspicious for an acute or subacute infarct. ACT 112: Negative or not required by law. The above report was generated using voice recognition software. It may contain grammatical, syntax or spelling errors. Electronically signed by: Austin Santana M.D. 09/11/2022 10:56 AM Head CTA 09/11/22 08:46 CT angio head w con CLINICAL HISTORY: 62 years-old Male with neuro deficit, right arm weakness. Acute stroke like symptoms COMPARISON STUDY: Head CT of same day TECHNIQUE: Following the IV administration of 118 cc of Optiray, CT angiogram of the brain was performed from the skull base to the vertex. Images are reviewed in the axial, sagittal, and coronal planes. 3-D MIPS images are created and assessed. IV contrast was administered without complication. All measurements were obtained according to NASCET criteria. A dose lowering technique was utilized adhering to the principles of ALARA. FINDINGS: CT ANGIOGRAM OF THE BRAIN: The imaged bilateral internal carotid arteries are patent. The anterior cerebral arteries and right middle cerebral artery are patent. There is high-grade stenosis of the distal M1 segment of the left middle cerebral artery on image 111 series 5 with additional high-grade narrowing noted involving the anterior M2 branch on image 115 series 5. The vertebrobasilar system and posterior cerebral arteries are widely patent. origin of the right posterior cerebral artery. There is no aneurysm, high-grade stenosis, or proximal branch occlusion identified. Dural sinuses appear patent. Area of decreased attenuation within the left frontoparietal lobe is better seen on the CT head of same day. IMPRESSION: 1. 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 2. Otherwise unremarkable CTA. ACT 112: Negative or not required by law. The above report was generated using voice recognition software. It may contain grammatical, syntax or spelling errors. Electronically signed by: Austin Santana M.D. 09/11/2022 10:56 AM Neck CTA 09/11/22 08:46 CT angio neck with con CLINICAL HISTORY: neuro deficit, right arm weakness TECHNIQUE: CT angiography of the neck was performed following intravenous admi nistration of iodinated contrast. Coronal and sagittal MIPS were obtained from the axial data set and were submitted for review. Automated dose lowering techniques and/or adjustment according to patient size were utilized for this examination. All measurements were calculated based on NASCET criteria. Comparison: None available at the time of this dictation. FINDINGS: Emphysema is seen. CTA Neck: The left common carotid artery shares common origin with the innominate artery. There is no significant atherosclerotic plaque in the aortic arch or the origins of the innominate, left common carotid, and left subclavian arteries. The common carotid, external carotid, cervical segments of the internal carotid arteries, and the cervical segments of the vertebral arteries are patent without hemodynamically significant stenosis. The left vertebral artery is dominant. Degenerative changes are seen in the spine. IMPRESSION: No occlusion, hemodynamically significant stenosis, or dissection in the major cervical arteries. Assessment of stenosis of the internal carotid arteries is based on NASCET criteria. ACT 112: Negative or not required by law. Electronically signed by: Tino Lee M.D. 09/11/2022 11:04 AM ECG Additional Comments: EKG reviewed: SR with occasional PVCs, no acute ST changes Code Status & VTE Plan VTE Prophylaxis Plan VTE Prophylaxis will be ordered: Yes Supervising Physician Co-Signing Physician Notes I have seen and examined the patient and have discussed the case with the provider above. I agree with the assessment and plan as stated with the following exceptions. 62-year-old active smoker presents with acute stroke evidenced by deficits including right upper extremity numbness and weakness for 1 day. He also reports having some numbness with this arm a while ago. He denies any headache, difficulty speaking, difficulty swallowing, no changes in appetite. He has no problems with ambulation and denies any visual issues. He is left-handed. He has been [place] [facility] for the past week with his family. He reports a period of heavy alcoholism but quit in 2000. He denies taking any med ications including no dfme-zwl-ledntit medications such as aspirin. In the ER he was loaded with clopidogrel and aspirin as well as Crestor 20 mg. On exam blood pressure is 113/74, pulse 68. There is no tachypnea or increased respiratory effort. He is afebrile and oxygenating 96% on room air. He appears comfortable and in no acute distress. He clearly has a deficit in right arm strength and is unable to make a fist. He is able to forward flex his arm at the shoulder to approximately 30 degrees while lying in a semirecumbent position. He has decreased sensation in the right arm. He is unable to perform finger spread with his right hand. Left upper extremity reveals 5 out of 5 strength throughout and no gross focal neurologic deficits. No other gross focal neurologic deficits are seen. Cranial nerves II through XII are intact. He is a dentulous. Cardiac exam reveals S1-S2 heard with regular rate and rhythm and no evidence of murmurs. There is no evidence of edema. Lungs are clear to auscultation bilaterally. Patient is able to sit up independently for this exam and is cooperative with the exam. Mental status is clear and he is oriented and able to give a history. Speech, memory, language are intact. Abdomen is soft nontender nondistended. Deep tendon reflexes at the knees are 2+ bilaterally. Work-up includes a head CT revealing an ill-defined area of decreased attenuation in the left frontoparietal lobe suspicious for acute infarct. CT angiogram of the brain revealed 2 areas of high-grade stenosis in the MCA on the left. Chest x-ray revealed a questionable 2.3 cm left retrocardiac nodule. Repeat chest x-ray with lateral views are concerning for pulmonary nodule. CT chest is pending. Lab work includes a CBC within normal limits. No coagulopath y is seen. CHEM panel within normal limits. Urinalysis is normal. EKG reveals sinus rhythm with occasional PVCs with a rate of 65. 1. Left MCA stroke 2. Smoking 3. Pulmonary nodule Patient is presenting with strokelike symptoms with evidence of possible stroke on CT. MRI will be performed for further clarification. He was loaded with clopidogrel 300 mg and aspirin 324 mg and will continue on clopidogrel 75 mg daily for 3 weeks and baby aspirin indefinitely. Defer to neurology for additional restrictions/recommendations. The patient's family is concerned about a car left at the [facility] and there are for family members who cannot drive and depend on this patient to get around. The question of driving restriction came up and for now we will defer to neurology and therapy based on his clinical recovery in the next few days. Agree with addition of Crestor for plaque stabilization. Lipid panel and A1c pending. Smoking cessation strongly advised. We discussed some options to help him quit including tobacco less cigarettes and nicotine replacement options. Establishing care with a regular primary care doctor is encouraged. Awaiting chest CT for further understanding of this 2.3 cm nodule in his chest. Tee, DO
--- NOTE | 2022-09-11 15:30 | XRay Report ---
XR chest 2V PA/lateral HISTORY: left retrocardiac nodule on 1-view chest? COMPARISON: Chest 09/11/2022. FINDINGS: The left retrocardiac nodular density seen on the prior chest x-ray may be present on the l ateral view. Therefore, follow-up nonemergent chest CT is recommended to exclude the possibility of a pulmonary nodule. No pneumothorax. No pleural effusions. No focal lung consolidations to suggest a p neumonia. No evidence for pulmonary edema. There are low lung volumes. The cardiac silhouette is top normal in size. No acute fractures identified. IMPRESSION: The left retrocardiac nodular density seen on the prior chest x-ray may be present on the lateral vie w. Therefore, follow-up nonemergent chest CT is recommended to exclude the possibility of a pulmonary nodule. ACT 112: Positive. There are findings on this exam that require communication between the performing entity and the patient following Patient Test Result Information Act ([place] Act 112) guidelines. Electronically signed by: Aly Garcia M.D. 09/11/2022 3:28 PM
[2022-09-11] MEDS ORDERED: ONDANSETRON INJ 2 MG/ML 2 ML VIAL IV PRN (15:56)
[2022-09-11] MEDS ORDERED: PHARMACIST DISCHARGE MED REC CONSULT PRN (15:56)
[2022-09-11] MEDS ORDERED: POLYETHYLENE (MIRALAX) 17 GM PACK PO PRN (15:56)
[2022-09-11] MEDS ORDERED: ACETAMINOPHEN 325 MG TAB PO PRN (15:56)
--- NOTE | 2022-09-11 16:16 | Electrocardiogram Report ---
Test Reason : Blood Pressure : / mmHG Vent. Rate : 065 BPM Atrial Rate : 065 BPM P-R Int : 172 ms QRS Dur : 096 ms QT Int : 386 ms P-R-T Axes : 018 -13 001 degrees QTc Int : 401 ms Sinus rhythm with occasional Premature ventricular complexes Abnormal ECG No previous ECGs available Confirmed by Judd Gambino ([id number]) on 09/11/2022 4:16:13 PM Referred By: Confirmed By:Delano Gambino
[2022-09-11] MEDS ORDERED: PNEUMOCOCCAL POLYSACCHARIDES 25 MCG/0.5 ML VIAL/SYR IM ONE (16:45)
[2022-09-11] MEDS ORDERED: GADOBUTROL 65ML VIAL IV ONE (17:06)
--- NOTE | 2022-09-11 17:28 | Magnetic Resonance Report ---
Brain MRI WITH AND WITHOUT CONTRAST HISTORY: stroke eval, R hand numbness TECHNIQUE: Multiplanar multisequence MRI of the brain was performed both before and after the intrave nous administration of contrast. COMPARISON STUDY: Head CT 09/11/2022. FINDINGS: Multiple scattered small foci of restricted diffusion seen within the left frontal and malinda etal lobes. Dominant focus within the left parietal lobe measures 15 mm. These are consistent with ac [place] infarcts, likely embolic there are associated areas of cytotoxic edema within the left frontal an d parietal lobes corresponding to the acute infarcts. No midline shift or mass effect at this time. T he midline structures are intact. The major vascular flow-voids at the skull base are well-maintained . Prior right lens removal. Small amount of fluid within the left sphenoid sinus. The mastoid air seth ls are clear. The ventricles and sulci demonstrate mild age-related involutional changes. No intracra nial mass or intracranial hemorrhage identified. Postcontrast sequences show no areas of abnormal enh ancement. IMPRESSION: Multiple scattered small foci of restricted diffusion within the left frontal and parietal lobes cons istent with acute infarcts. These are likely embolic. ACT 112: Negative or not required by law. Electronically signed by: Aly Garcia M.D. 09/11/2022 5:26 PM
[2022-09-11] MEDS: HEPARIN SOD 5,000 UNIT/0.5 ML VIAL SQ SCH ×2 (17:34→23:00)
[2022-09-12 06:32] LABS: Hematocrit (blood only) 43.1 % (42.0-52.0); Mean Corpuscular Hemoglobin 29.8 pg (25.0-34.0); Mean Corpuscular Hgb Conc 34.8 g/dL (32.0-36.0); Mean Corpuscular Volume 85.7 fL (80.0-100.0); Mean Platelet Volume 9.8 fL (9.4-12.4); Platelet Count 256 K/uL (130-400); RDW Coefficient of Variation 14.7 % (11.5-14.5); RDW Standard Deviation 45.8 fL (36.4-46.3); Red Blood Count 5.03 M/uL (4.70-6.10)
[2022-09-12 06:57] LABS: Calcium 8.9 mg/dl (8.6-10.3); Creatinine Clr Calc Pharmacy 78.5 ml/min; Est GFR (Non-African American) 70.8 ml/min; Potassium 4.1 mmol/L (3.5-5.1)
[2022-09-12] MEDS ORDERED: SODIUM CHLORIDE 0.9% 1000ML 1,000 ML IV SCH (08:30)
[2022-09-12] MEDS: CLOPIDOGREL BISULFATE 75 MG TAB PO SCH (08:46)
[2022-09-12] MEDS: ASPIRIN 81 MG ECTAB PO SCH (08:46)
[2022-09-12] MEDS: ATORVASTATIN 40 MG TAB PO SCH (08:47)
[2022-09-12] MEDS: HEPARIN SOD 5,000 UNIT/0.5 ML VIAL SQ SCH ×3 (08:47→22:59)
[2022-09-12 09:25] LABS: Estimated Average Glucose 123 mg/dl; Hemoglobin A1C 5.9 % (4.5-5.6)
--- NOTE | 2022-09-12 09:30 | CT Scan Report ---
CT chest diagnostic wo con CT DOSE: 930.54 mGy.cm CLINICAL HISTORY: 62 years-old Male with evaluate pulm nodule 2.3 cm more clearly. Follow-up study p atient with history of a possible pulmonary nodule TECHNIQUE: Multiaxial CT images of the chest were performed without contrast. A dose lowering techni que was utilized adhering to the principles of ALARA. COMPARISON: Chest radiograph 09/11/2022 FINDINGS: No thyroid nodule or lymphadenopathy. Heart is normal in size. Mild coronary artery calcifi cations. No thoracic aortic aneurysm. Moderate pulmonary emphysema. No pneumothorax, pleural effusion, airspace consolidation, overt pulmon matilde edema, suspicious pulmonary nodule or mass. Subcentimeter scattered calcified granulomata in the lungs. There are a few benign-appearing fissural nodules within left midlung measuring up to 5 mm. Ti ny likely benign 3 mm solid nodule of the right upper lobe, image 80. No acute process of the imaged upper abdomen. Probable cysts of the kidneys. Unremarkable soft tissue s. No acute fracture. Degenerative changes of the shoulders and spine. Chronic appearing spinous proc ess fractures of the lower cervical spine. IMPRESSION: 1. Emphysema without acute intrathoracic abnormality. 2. No suspicious pulmonary nodules. The findings described on yesterday's chest radiographs were seco ndary to summation density. 3. No lymphadenopathy. ACT 112: Negative or not required by law. Electronically signed by: Austin Santana M.D. 09/12/2022 9:28 AM
--- NOTE | 2022-09-12 09:50 | Neurology Consultation ---
Date of Consultation September 12, 2022 Assessment & Plan (1) Stroke: R arm weakness secondary to L MCA stroke. Given lack of large vessel disease on CTA despite the borderzone stroke pattern on MRI, suspect this is cardioembolic. The multifocal L MCA stenoses has the appearance of recanalized thrombus rather than in situ plaque. Recommend the following: -- outpatient event monitor -- Dual antiplatelet therapy for 21 days, then aspirin 81mg alone -- Lipitor 40mg daily -- Smoking cessation counseling. -- Therapy evals -- Neurology follow-up 4-6 weeks -- Please contact us with any further questions. Telehealth Consultation Telehealth Information Telehealth Information: I performed this visit using a real-time telehealth connection between my location and the patients location ([facility]). After connecting through interactive tele-video, patient was identified by name and date of and/or wristband check.Patient (or authorized healthcare leather goods sales representative) was informed that this was a telemedicine visit and it was being conducted confidentially over secure lines. My office door was closed and no one else was present in the room with me.Patient (or authorized healthcare rep resentative) provided consent to proceed with the visit, expressed an understanding of privacy and security of the telemedicine visit, and gave permission to have a hospital leather goods sales representative in the room in order to assist with the visit and to conduct portions of the visit, as needed. I informed the patient (or authorized healthcare leather goods sales representative) that I reviewed their record and presented the opportunity for them to ask any questions regarding the visit today. The patient agreed to participate. History of Present Illness Reason for Consultation: R arm weakness Requesting Physician: Dr. Richardson Attending Physician: Don Richardson MD History of Present Illness Junior Cooney is a 62 yo M presenting with subacute onset of R arm parasthesias then weakness over the 24 hours prior to admission. Patient denies any difficulty with language, no headache, visual symptoms or leg weakness/gait disturbance. He has never had a stroke before and takes no medication at home. No new symptoms since admission, he reports some movement in the R arm today. Allergies Allergy/AdvReac Type Severity Reaction Status Date / Time No Known Allergies Allergy Unverified 09/11/22 10:47 Home Medications Medication Instructions Recorded Confirmed Type No Known Home Medications 09/11/22 09/11/22 History Patient History Medical History No pertinent past medical history Tobacco use disorder Surgical History Cataract H/O: knee surgery Family History Other Diabetes Social History Smoking Status: Current every day smoker Cigarettes Per Day: 30; Second Hand Exposure: Yes; Do You Dip or Chew Tobacco: No; Tobacco Cessation Education Requested by Patient: Yes Hx Alcohol Use: No Hx Substance Use: No Preferred Language: Burkinan Communication Ability: Impaired Hospice Care Consultant Required: No Beliefs That Will Affect Care: None Current Living Situation: Spouse Other Information That Helps Us Care for You: No Feels Safe at Home: Yes Safety Concerns: Feels Safe At This Time Assistive Devices: None Review of Systems + R arm weakness Physical Exam Neurological Examination: Mental Status: Awake and alert. Oriented to person, place, and time. Fluent. Comprehension intact. Affect appropriate. Cranial Nerves: II: Reads NIHSS cards, pupils 3/3 to 2/2, meza grossly intact. III/IV/: Versions intact without nystagmus, no gaze preference. V: Facial sensation symmetric to light touch VII: Facial expression symmetric VIII: Hearing intact to voice Motor: Strength was symmetric and antigravity throughout except the RUE which was 2/5. Trace movement of the fingers/thumb. Coordination: Movements were non-dysmetric Reflexes: Unable to assess over telemedicine Results & Data Vital Signs (Past 12 Hours) Vital Signs Temp Pulse Pulse Resp BP Pulse Ox O2 Del Method 09/12/22 07:00 73 09/12/22 07:51 36.4 C L 78 20 117/76 94 Room Air 09/12/22 02:53 36.6 C 74 18 101/74 95 Room Air 09/12/22 00:25 66 09/11/22 22:42 36.8 C 68 18 123/89 93 Room Air Laboratory Results Abnormal lab results 09/11/22 09/11/22 09/12/22 Range/Units 08:58 08:58 05:59 RDW Std Deviation 46.5 H (36.4-46.3) fL RDW Coeff of Bakari 14.6 H 14.7 H (11.5-14.5) % Bandera # (Auto) 0.76 H (0.11-0.59) K/uL Sodium 135 L (136-145) mmol/L Chloride (98-107) mmol/L Glucose 113 H (70-99(Fasting)) mg/dl Hemoglobin A1c (4.5-5.6) % C-Reactive Protein 0.93 H (0-0.5) mg/dl Cholesterol/HDL Ratio (0-5) 09/12/22 09/12/22 Range/Units 05:59 05:59 RDW Std Deviation (36.4-46.3) fL RDW Coeff of Bakari (11.5-14.5) % Band[place] # (Auto) (0.11-0.59) K/uL Sodium (136-145) mmol/L Chloride 108 H (98-107) mmol/L Glucose (70-99(Fasting)) mg/dl Hemoglobin A1c 5.9 H (4.5-5.6) % C-Reactive Protein (0-0.5) mg/dl Cholesterol/HDL Ratio 6.0 H (0-5) Diagnostic Findings MRI brain - L embolic stroke in borderzone territory of the L MCA
[2022-09-12] MEDS: NICOTINE 14 MG/24 HR PATCH TD SCH (10:44)
--- NOTE | 2022-09-12 11:16 | Pharmacy Report ---
- Date of Service September 12, 2022 - Pharmacy CVA/TIA Medication Review Medications to Prevent Stroke handout has been added to the patients discharge packet. Antiplatelet(s) * Aspirin 81 mg PO daily (continue for life) * Clopidogrel 75 mg PO daily (continue x 21 days then stop) Cholesterol * High intensity statin: atorvastatin 40 mg daily DVT Prophylaxis * Heparin SQ Therapeutic Anticoagulation * No history of Afib/Aflutter noted Type 2 Diabetes * Patient does not have T2DM
--- NOTE | 2022-09-12 13:54 | Hospitalist Progress Note ---
Date of Service September 12, 2022 Assessment & Plan (1) Stroke: (2) Right hand weakness: Plan: ACUTE CEREBROVASCULAR ACCIDENT, LEFT FRONTOPARIETAL AREA LIKELY EMBOLIC ETIOLOGY This is a 62-year-old male with tobacco use disorder with 50+ pack years who presents with numbness and tingling of right hand since last evening with concern for acute-subacute infarct of L MCA. Developed paresthesias in RUE last evening while playing cards, woke up this morning with numbness and weakness in R hand CT head with no acute intracranial hemorrhage or midline shift. Ill-defined area of decreased attenuation within the superior left frontoparietal lobe is suspicious for an acute or subacute infarct Head/neck CTA with high-grade stenosis of the distal left M1 branch of the middle cerebral artery with additional area of high-grade narrowing noted involving an anterior M2 branch ED provider discussed with Janny telestroke who confirmed we are out of range for intervention at this time. Loaded with 300mg plavix and given 325mg aspirin and 20mg Crestor MRI brain w/wo, echo with bubble study, PT/OT/speech evals Continue dual antiplatelet, statin Allow for permission HTN to allow for cerebral perfusion for acut period, only intervening for BP > 180/110 A1c and fasting labs in AM Routine neuro consult 09/11 Brain MRI: Multiple scattered small foci of restricted diffusion within the left frontal and parietal lobes consistent with acute infarcts. These are likely embolic. CT angiogram head and neck:1. 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 2. Otherwise unremarkable CTA. Echocardiogram: EF 55 to 60%, mild concentric LVH, no regional wall motion abnormalities, grade 1 diastolic dysfunction, borderline posterior mitral valve prolapse, there is no interatrial shunt Telemetry: No arrhythmias so far A1c 5.9 Triglyceride 110, LDL 143, HDL 33 Evaluated by neurology service-Dr. Wolfgang Olvera Recommend: -- outpatient event monitor -- Dual antiplatelet therapy for 21 days, then aspirin 81mg alone -- Lipitor 40mg daily -- Smoking cessation counseling. -- Therapy evals -- Neurology follow-up 4-6 weeks -- Please contact us with any further questions. Symptoms about the same as yesterday Continue to monitor in telemetry unit PT and OT evaluation (3) Pulmonary nodule: Plan: CXR with questionable 2.3 cm left retrocardiac nodule. CT chest: 1. Emphysema without acute intrathoracic abnormality. 2. No suspicious pulmonary nodules. The findings described on yesterday's chest radiographs were secondary to summation density. 3. No lymphadenopathy. Close outpatient follow-up in light of patient's smoking (4) Tobacco use disorder: Plan: 50+ pack years. Discussed importance of cessation -- Nicotine patch ordered DVT Ppx: SQ heparin Code status: FULL PCP: no PCP (resides in [place], [place]) Dispo: PT OT evaluation in progress Anticipate discharge to home tomorrow with outpatient physical therapy and Occupational Therapy services plan of care discussed with patient and his in detail and at length all questions answered they are understanding, agreeable, comfortable with the plan of care Admission and Anticipated Discharge Date Admission Date: September 11, 2022 Subjective Follow-up for acute CVA, etc. Seen resting in bed, sleeping but easily awakened Patient's significant other at the bedside Patient reports he still has right upper extremity weakness and hand numbness- unchanged from yesterday No other focal weakness or numbness, ambulated in the hallways with no problems Denies palpitations, shortness of breath, dizziness, syncope/presyncope, chest pain No other symptoms Review of Systems Review of Systems: all noted and negative except for above Physical Exam Physical Exam: General- oriented x 3, not in distress, speaks in sentences with no effort or accessory muscle use Head- atraumatic Eyes- PERRL, EOMI, anicteric ENT- oropharynx clear Neck- supple, no JVD, no adenopathy, no thyromegaly; carotids +2/2, no bruits appreciated Lungs- clear to auscultation bilaterally, no rales/wheezes Heart- normal rate, regular rhythm; no murmur, no gallop, no rub appreciated Abdomen- normal bowel sounds, nondistended, soft, nontender, no masses or hepatosplenomegaly Extremities- no pretibial edema, no calf tenderness; peripheral pulses intact Neuro- alert, oriented x 3; CN 2-12 grossly intact; Right upper extremity: Motor strength 3-4/5 Sensation 100% all extremities No other gross focal neurologic deficits Skin- warm & dry Results & Data Results & Data Vital Signs (Past 12 Hours) Vital Signs Temp Pulse Pulse Resp BP Pulse Ox O2 Del Method 09/12/22 11:02 36.5 C 61 18 116/74 95 Room Air 09/12/22 07:00 73 09/12/22 07:51 36.4 C L 78 20 117/76 94 Room Air 09/12/22 02:53 36.6 C 74 18 101/74 95 Room Air all noted and reviewed including below
[2022-09-13] MEDS ORDERED: MAGNESIUM SULFATE / D5W 1 GM/100 ML BAG IV ONE (00:30)
[2022-09-13 06:53] LABS: Hematocrit (blood only) 43.4 % (42.0-52.0); Hemoglobin 15.1 g/dl (14.0-18.0); Mean Corpuscular Hemoglobin 30.1 pg (25.0-34.0); Mean Corpuscular Hgb Conc 34.8 g/dL (32.0-36.0); Mean Corpuscular Volume 86.5 fL (80.0-100.0); Platelet Count 248 K/uL (130-400); RDW Coefficient of Variation 14.6 % (11.5-14.5); RDW Standard Deviation 46.2 fL (36.4-46.3); Red Blood Count 5.02 M/uL (4.70-6.10); White Blood Count 7.96 K/ul (4.8-10.8)
[2022-09-13 07:20] LABS: Thyroid Stimulating Hormone 0.017 uIu/ml (0.300-4.500)
[2022-09-13 07:21] LABS: Calcium 8.9 mg/dl (8.6-10.3); Potassium 3.9 mmol/L (3.5-5.1)
[2022-09-13 07:26] LABS: BUN Creatinine Ratio 17.2 (10-20); Creatinine Clr Calc Pharmacy 75.6 ml/min; Est GFR (African American) 77.8 ml/min; Est GFR (Non-African American) 67.1 ml/min
[2022-09-13 07:54] LABS: T4 Free Thyroxine 0.89 ng/dl (0.61-1.60)
[2022-09-13] MEDS ORDERED: STROKE PATIENT DISCHARGE STA (09:43)
[2022-09-13] MEDS: NICOTINE 14 MG/24 HR PATCH TD SCH (09:59)
[2022-09-13] MEDS: HEPARIN SOD 5,000 UNIT/0.5 ML VIAL SQ SCH (09:59)
[2022-09-13] MEDS: CLOPIDOGREL BISULFATE 75 MG TAB PO SCH (10:00)
[2022-09-13] MEDS: ASPIRIN 81 MG ECTAB PO SCH (10:01)
[2022-09-13] MEDS: ATORVASTATIN 40 MG TAB PO SCH (10:02)
[2022-09-13] MEDS ORDERED: ASPIRIN 81 MG ECTAB PO SCH (13:15)
[2022-09-13] MEDS ORDERED: ATORVASTATIN 40 MG TAB PO SCH ×2 (13:15)
[2022-09-13] MEDS ORDERED: CLOPIDOGREL BISULFATE 75 MG TAB PO SCH (13:15)
--- NOTE | 2022-09-13 14:14 | Electrocardiogram Report ---
Test Reason : Blood Pressure : / mmHG Vent. Rate : 061 BPM Atrial Rate : 061 BPM P-R Int : 190 ms QRS Dur : 100 ms QT Int : 404 ms P-R-T Axes : 025 -15 011 degrees QTc Int : 406 ms Normal sinus rhythm Normal ECG When compared with ECG of 11-SEP-2022 08:48, Premature ventricular complexes are no longer Present Confirmed by Erik Awad ([id number]) on 09/13/2022 2:13:57 PM Referred By: REFERRED SELF Confirmed By:Erik Awad
--- NOTE | 2022-09-13 17:29 | Hospitalist Progress Note ---
Date of Service September 13, 2022 Assessment & Plan (1) Stroke: (2) Right hand weakness: Plan: ACUTE CEREBROVASCULAR ACCIDENT, LEFT FRONTOPARIETAL AREA LIKELY EMBOLIC ETIOLOGY This is a 62-year-old male with tobacco use disorder with 50+ pack years who presents with numbness and tingling of right hand since last evening with concern for acute-subacute infarct of L MCA. Developed paresthesias in RUE last evening while playing cards, woke up this morning with numbness and weakness in R hand CT head with no acute intracranial hemorrhage or midline shift. Ill-defined area of decreased attenuation within the superior left frontoparietal lobe is suspicious for an acute or subacute infarct Head/neck CTA with high-grade stenosis of the distal left M1 branch of the middle cerebral artery with additional area of high-grade narrowing noted involving an anterior M2 branch ED provider discussed with Janny telestroke who confirmed we are out of range for intervention at this time. Loaded with 300mg plavix and given 325mg aspirin and 20mg Crestor Brain MRI: Multiple scattered small foci of restricted diffusion within the left frontal and parietal lobes consistent with acute infarcts. These are likely embolic. CT angiogram head and neck:1. 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 2. Otherwise unremarkable CTA. Echocardiogram: EF 55 to 60%, mild concentric LVH, no regional wall motion abnormalities, grade 1 diastolic dysfunction, borderline posterior mitral valve prolapse, there is no interatrial shunt Telemetry: No arrhythmias so far A1c 5.9 Triglyceride 110, LDL 143, HDL 33 Evaluated by neurology service-Dr. Wolfgang Olvera Recommend: -- outpatient event monitor -- Dual antiplatelet therapy for 21 days, then aspirin 81mg alone -- Lipitor 40mg daily -- Smoking cessation counseling. -- Therapy evals -- Neurology follow-up 4-6 weeks -- Please contact us with any further questions. Right upper extremity strength improving Continue medications and follow-up per above (3) Pulmonary nodule: Plan: CXR with questionable 2.3 cm left retrocardiac nodule. CT chest: 1. Emphysema without acute intrathoracic abnormality. 2. No suspicious pulmonary nodules. The findings described on yesterday's chest radiographs were secondary to summation density. 3. No lymphadenopathy. Close outpatient follow-up in light of patient's smoking (4) Tobacco use disorder: Plan: 50+ pack years. Discussed importance of cessation -- Nicotine patch ordered DVT Ppx: SQ heparin Code status: FULL PCP: no PCP (resides in [place]) Dispo: Discharge to home tomorrow Follow-up with PCP in 1 week Follow-up with neurologist in 2 to 4 weeks plan of care discussed with patient and his in detail and at length all questions answered they are understanding, agreeable, comfortable with the plan of care Admission and Anticipated Discharge Date Admission Date: September 11, 2022 Subjective Follow-up for acute CVA, etc. Seen resting in bed,, comfortable, in good spirits States he feels fine overall Right upper extremity strength improving No other new focal neurologic deficits No other symptoms Review of Systems Review of Systems: all noted and negative except for above Physical Exam Physical Exam: General- oriented x 3, not in distress, speaks in sentences with no effort or accessory muscle use Eyes- anicteric Neck- no JVD Lungs- clear breath sounds bilaterally, no rales/wheezes Heart- normal rate, regular rhythm; no murmurs Abdomen- normal bowel sounds, nondistended, soft, nontender Extremities- no pretibial edema, no calf tenderness Neuro- alert, oriented x 3; right upper extremity motor strength 4/5, sensation 100% No other gross neurologic focal deficits Skin- warm & dry Results & Data Results & Data Vital Signs (Past 12 Hours) Vital Signs Temp Pulse Resp BP Pulse Ox O2 Del Method 09/13/22 12:29 36.3 C L 82 18 113/78 95 Room Air 09/13/22 11:56 36.6 C 83 18 98/77 L 95 09/13/22 08:15 36.6 C 83 18 98/77 L 95 Room Air all noted and reviewed including below
--- NOTE | 2022-09-13 17:40 | Discharge Summary ---
Discharge Summary Date of Service September 13, 2022 Notes For Next Care Provider Patient needs outpatient Zio patch monitor. Medication Changes From Visit ASPIRIN, PLAVIX ATORVASTATIN NICOTINE PATCH Admission HPI Per Admitting Provider This is a 62-year-old male with tobacco use disorder with 50+ pack years who presents with numbness and tingling of right hand since last evening. Patient resides in [place] outside of [place] and has been vacationing at [facility] with his family over the past few days was playing cards last night when he noticed some numbness in right hand. Thought he had just putting weight on his elbow causing [id number] and went to bed. When he woke up this morning, patient had numbness of right hand and inability to use it and came in for further evaluation. States he had some numbness in right hand a few weeks ago that only lasted for short period of time before resolving on its own. Denies any difficulty speaking or swallowing. No numbness or tingling in other extremities. No difficulty with ambulation. Denies any known past history of stroke, DM II, HTN, CAD. Has been smoking more the past few days while on vacation (1.5-2ppd). Does not have a primary care doctor and only medical attention he has received recently was a preoperative evaluation before cataract surgery. No F/C, lightheadedness, CP, SOB, N/V, abdominal pain, dysuria, diarrhea or constipation. Admission Exam Per Admitting Provider General Appearance:WD/WN, vitals as above, NAD, sitting up in bed, pleasant, conversing easily Head: normocephalic, atraumatic Eyes:normal inspection, PERRL, conjunctivae normal, anicteric sclerae ENT: external ear and nose normal, oropharynx dry mucous membranes Neck: normal visual inspection, trachea midline, no thyromegaly Respiratory: normal respiratory effort, lungs clear to auscultation, no wheeze, rales, rhonchi. No accessory muscle use Cardiovascular: regular rate, rhythm, no murmur, normal peripheral pulses, no BLE edema. Vessels: no JVD Chest: normal inspection of chest Abdomen/GI: normal bowel sounds, soft, nontender, no hepatosplenomegaly Extremities/Musculoskeletal: no cyanosis or clubbing, extremities motor strength 5/5 Neurologic: PERRL, EOMI, accommodation nl, no face palsy, no dysarthria, CN's II-XI intact bilaterally. R hand and forearm 3/5, decreased sensation and passive ROM only. R shoulder 4/5. RLE, LUE and LLE 5/5, active ROM Psychiatric:A+Ox3, euthymic affect Skin: no rashes, normal color, warm/dry Principal Dx & Hospital Course #1 = Principal Diagnosis (1) Stroke: (2) Right hand weakness: ACUTE CEREBROVASCULAR ACCIDENT, LEFT FRONTOPARIETAL AREA LIKELY EMBOLIC ETIOLOGY This is a 62-year-old male with tobacco use disorder with 50+ pack years who presents with numbness and tingling of right hand since last evening with concern for acute-subacute infarct of L MCA. Developed paresthesias in RUE last evening while playing cards, woke up this morning with numbness and weakness in R hand CT head with no acute intracranial hemorrhage or midline shift. Ill-defined area of decreased attenuation within the superior left frontoparietal lobe is suspicious for an acute or subacute infarct Head/neck CTA with high-grade stenosis of the distal left M1 branch of the middle cerebral artery with additional area of high-grade narrowing noted involving an anterior M2 branch ED provider discussed with Janny telestroke who confirmed we are out of range for intervention at this time. Loaded with 300mg plavix and given 325mg aspirin and 20mg Crestor Brain MRI: Multiple scattered small foci of restricted diffusion within the left frontal and parietal lobes consistent with acute infarcts. These are likely embolic. CT angiogram head and neck:1. 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 2. Otherwise unremarkable CTA. Echocardiogram: EF 55 to 60%, mild concentric LVH, no regional wall motion abnormalities, grade 1 diastolic dysfunction, borderline posterior mitral valve prolapse, there is no interatrial shunt Telemetry: No arrhythmias so far A1c 5.9 Triglyceride 110, LDL 143, HDL 33 Evaluated by neurology service-Dr. Wolfgang Olvera Recommend: -- outpatient event monitor -- Dual antiplatelet therapy for 21 days, then aspirin 81mg alone -- Lipitor 40mg daily -- Smoking cessation counseling. -- Therapy evals -- Neurology follow-up 4-6 weeks -- Please contact us with any further questions. Right upper extremity strength improving Continue medications and follow-up per above (3) Pulmonary nodule: CXR with questionable 2.3 cm left retrocardiac nodule. CT chest: 1. Emphysema without acute intrathoracic abnormality. 2. No suspicious pulmonary nodules. The findings described on yesterday's chest radiographs were secondary to summation density. 3. No lymphadenopathy. Close outpatient follow-up in light of patient's smoking (4) Tobacco use disorder: 50+ pack years. Discussed importance of cessation -- Nicotine patch ordered DVT Ppx: SQ heparin Code status: FULL PCP: no PCP (resides in [place], [place]) Dispo: Discharge to home tomorrow Follow-up with PCP in 1 week Follow-up with neurologist in 2 to 4 weeks plan of care discussed with patient and his in detail and at length all questions answered they are understanding, agreeable, comfortable with the plan of care Discharge Exam General- oriented x 3, not in distress, speaks in sentences with no effort or accessory muscle use Head- atraumatic Eyes- PERRL, EOMI, anicteric ENT- oropharynx clear Neck- supple, no JVD, no adenopathy, no thyromegaly; carotids +2/2, no bruits appreciated Lungs- clear to auscultation bilaterally, no rales/wheezes Heart- normal rate, regular rhythm; no murmur, no gallop, no rub appreciated Abdomen- normal bowel sounds, nondistended, soft, nontender, no masses or hepatosplenomegaly Extremities- no pretibial edema, no calf tenderness; peripheral pulses intact Neuro- alert, oriented x 3; CN 2-12 grossly intact; Right upper extremity: Motor strength 3-4/5 Sensation 100% all extremities No other gross focal neurologic deficits Skin- warm & dry Updated Medication List Medication Instructions Recorded Confirmed Type aspirin 81 mg tablet,delayed 81 mg PO DAILY 30 days #30 tabs 09/13/22 Rx release atorvastatin 40 mg tablet 40 mg PO QAM 30 days #30 tabs 09/13/22 Rx clopidogrel 75 mg tablet 75 mg PO QAM 30 days #30 tabs 09/13/22 Rx nicotine 7 mg/24 hr daily 14 mg transdermal QAM 14 days #14 09/13/22 Rx transdermal patch ea Hospital Stay Data Consultations 09/11/22 12:40 ED Decision to Admit Stat 09/11/22 15:22 Consult Neurology Routine Diagnostic Imagining Performed 09/11/22 08:46 CT angio head w con Stat CT angio neck with con Stat CT head/brain wo con Stat TECHNIQUE: Following the IV administration of 118 cc of Optiray, CT angiogram of the brain was performed from the skull base to the vertex. Images are reviewed in the axial, sagittal, and coronal planes. 3-D MIPS images are created and assessed. IV contrast was administered without complication. All measurements were obtained according to NASCET criteria. A dose lowering technique was utilized adhering to the principles of ALARA. FINDINGS: CT ANGIOGRAM OF THE BRAIN: The imaged bilateral internal carotid arteries are patent. The anterior cerebral arteries and right middle cerebral artery are patent. There is high-grade stenosis of the distal M1 segment of the left middle cerebral artery on image 111 series 5 with additional high-grade narrowing noted involving the anterior M2 branch on image 115 series 5. The vertebrobasilar system and posterior cerebral arteries are widely patent. origin of the right posterior ce rebral artery. There is no aneurysm, high-grade stenosis, or proximal branch occlusion identified. Dural sinuses appear patent. Area of decreased attenuation within the left frontoparietal lobe is better seen on the CT head of same day. IMPRESSION: 1. 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 2. Otherwise unremarkable CTA. ACT 112: Negative or not required by law. The above report was generated using voice recognition software. It may contain grammatical, syntax or spelling errors. 09/11/22 12:47 MR brain wo/w con Routine COMPARISON STUDY: Head CT 09/11/2022. FINDINGS: Multiple scattered small foci of restricted diffusion seen within the left frontal and parietal lobes. Dominant focus within the left parietal lobe measures 15 mm. These are consistent with acute infarcts, likely embolic there are associated areas of cytotoxic edema within the left frontal and parietal lobes corresponding to the acute infarcts. No midline shift or mass effect at this time. The midline structures are intact. The major vascular flow-voids at the skull base are well-maintained. Prior right lens removal. Small amount of fluid within the left sphenoid sinus. The mastoid air cells are clear. The ventricles and sulci demonstrate mild age-related involutional changes. No intracranial mass or intracranial hemorrhage identified. Postcontrast sequences show no areas of abnormal enhancement. IMPRESSION: Multiple scattered small foci of restricted diffusion within the left frontal and parietal lobes consistent with acute infarcts. These are likely embolic. ACT 112: Negative or not required by law. 09/12/22 08:30 CT chest diagnostic wo con Routine COMPARISON: Chest radiograph 09/11/2022 FINDINGS: No thyroid nodule or lymphadenopathy. Heart is normal in size. Mild coronary artery calcifications. No thoracic aortic aneurysm. Moderate pulmonary emphysema. No pneumothorax, pleural effusion, airspace consolidation, overt pulmonary edema, suspicious pulmonary nodule or mass. Subcentimeter scattered calcified granulomata in the lungs. There are a few benign-appearing fissural nodules within left midlung measuring up to 5 mm. Tiny likely benign 3 mm solid nodule of the right upper lobe, image 80. No acute process of the imaged upper abdomen. Probable cysts of the kidneys. Unremarkable soft tissues. No acute fracture. Degenerative changes of the shoulders and spine. Chronic appearing spinous process fractures of the lower cervical spine. IMPRESSION: 1. Emphysema without acute intrathoracic abnormality. 2. No suspicious pulmonary nodules. The findings described on yesterday's chest radiographs were secondary to summation density. 3. No lymphadenopathy. ACT 112: Negative or not required by law. Pending Results Patient Have Any Pending Studies at Discharge: Yes Discharge Instructions Given to Patient (Per Discharging Provider) PLEASE REFER TO YOUR NEW MEDICATION LIST AND FOLLOW INSTRUCTIONS CAREFULLY. YOUR NEW MEDICATIONS INCLUDE: ASPIRIN, PLAVIX- antiplatelets to prevent stroke ATORVASTATIN- to lower cholesterol, prevent stroke NICOTINE PATCH - do not use if you decide to resume smoking YOU NEED TO HAVE A HEART MONITOR PLACED TO DETECT A POSSIBLE UNDERLYING IRREGULAR HEARTBEAT. YOUR PRIMARY CARE PHYSICIAN CAN ASSIST YOU WITH THIS. NO DRINKING OR SMOKING. CONTINUE OUTPATIENT PHYSICAL AND OCCUPATIONAL THERAPY. FOLLOW UP WITH PRIMARY CARE PHYSICIAN OUTLINED ABOVE. FOLLOW UP WITH A NEUROLOGIST IN 4 WEEKS. Who to Call and When: Medical Emergencies: Call 911 immediately if you experience any of the following warning signs and symptoms of Stroke: Sudden numbness or weakness of the face, arm or leg, especially on one side of the body Sudden confusion, trouble speaking or understanding Sudden trouble seeing in one or both eyes Sudden trouble walking, dizziness, loss of balance or coordination Sudden severe headache with no cause Do not delay calling 911 if you experience any warning signs or symptoms of a stroke. Delay in seeking medical attention may affect what treatments can be given to you. Risk Factors for Stroke: You can reduce your chances of stroke by working with your medical provider to adopt a healthy lifestyle. Some specific ways to lower your chance of stroke are: If you are a smoker, now is the time to stop smoking cigarettes If you are diabetic, improve the control of your blood sugars Avoid excessive amounts of alcohol Control high blood pressure Lose weight if you are overweight Be sure to lead an active lifestyle Eat a healthy diet low in salt, cholesterol and fat You should know about other risk factors for stroke that you are unable to control. These include: Age 55 years or older Male gender Certain racial groups: , or / Family History of Stroke, Mini stroke or Heart Attack Sickle Cell Disease Follow Up: It is important for you to keep your follow up appointments with your medical provider. Total Time Total Time Spent Total Time Spent (In Minutes): >30 minutes
[2022-09-16 14:10] LABS: Ehrlichia chaff DNA Bld Negative (Negative)
== END 2022-09-13 13:40 | disposition home or self-care (01) | DRG 66 ==
LOC: ED 08:03 → SUATTDRO 12:40 → 2E 12:40